=== PATIENT | female | born 1990 | race Caucasian/White ===

== ENCOUNTER 2019-09-25 20:16 | Emergency (ER) | payer BC, SELFPAY ==
[2019-09-25 20:28] VITALS: BP 148/87; PULSE 86; RESP 20; TEMP 37.1; O2SAT 100; BMI 27.7
[2019-09-25 20:42] VITALS: BP 148/87; PULSE 86; RESP 20; TEMP 37.1; O2SAT 100
--- NOTE | 2019-09-25 20:43 | HMH.EDUTC ---
[facility] [place] Disposition Clinical Impression: Wasp sting Qualifiers: Encounter type: initial encounter Injury intent: accidental or unintentional Qualified Code(s): T63.461A - Toxic effect of venom of wasps, accidental (unintentional), initial encounter Disposition: Home, Self-Care Condition on Discharge: Good Instructions: DI for Insect Bites and Stings Additional Instructions: Take the medications as directed. Don't start the oral steroids until tomorrow. Follow up with your primary care provider. GO TO THE ER FOR ANY WORSENING SYMPTOMS OR CONCERNS Prescriptions: cephALEXin [Keflex 500mg Cap] 500 mg PO Q6H 10 Days #40 cap Transmission Status: Received by [facility] # methylPREDNISolone [Medrol] 4 mg PO DIRECTED 6 Days #21 tab.ds.pk Transmission Status: Received by [facility] # Triamcinolone Acetonide 1 applicatio TP TIDP PRN 7 Days #1 tube PRN Reason: Itching Transmission Status: Received by [facility] # Referrals: Penny Martinez APRN [Primary Care Provider] - Forms: Work/School Release Time of Disposition: 20:47 Medical Decision Making - Medical Records Medical records reviewed: No: I reviewed the patient's medical records. - Colt Inquiry Pt receiving controlled substance: No Vital Signs: 09/25/19 20:28 09/25/19 20:42 Temperature 98.8 F 98.8 F Temperature Source Oral Pulse Rate 86 Pulse Rate [Right Brachial] 86 Respiratory Rate 20 20 Blood Pressure 148/87 H Blood Pressure [Right Arm] 148/87 H Blood Pressure Mean [Right Arm] 107 Blood Pressure Source [Right Arm] Automatic Cuff Blood Pressure Position [Right Arm] Sitting 02 Sat by Pulse Oximetry 100 Oxygen Delivery Method Room Air Orders (Tests/Meds): ED MEDICATIONS Discontinued Medications Generic Name Dose Route Start Last Admin Trade Name Freq PRN Reason Stop Dose Admin Methylprednisolone Sodium Succinate 125 mg 09/25/19 20:35 09/25/19 20:41 Solu-Medrol 125mg/2ml Vial IM 09/25/19 20:36 125 mg ONCE ONE Administration [facility] [place] HPI - General Stated complaint: wasp sting 09/24/19 1630 R foot Time Seen by Provider: 09/25/19 20:43 Mode of Arrival: Ambulatory Source of Information: Patient Limitations: No Limitations Description of Symptoms (Recalled from Triage Doc. by RN): PATIENT C/O WASP STING TO RIGHT ANKLE YESTERDAY. REDNESS, WARMTH AND SWELLING NOTED TO AREA HEENT Symptoms (Recalled from RN notes): No Resp Symptoms (Recalled from RN notes): No Skin Symptoms (Recalled from RN notes): Yes MS Symptoms (Recalled from RN notes): No Functional Status (Recalled from RN notes): WNL - History of Present Illness Provider Complaint: She was stung by a wasp yesterday on her right lower leg. Since then she has had worsenign swelling of her right foot and right lower leg. She denies any swelling elsewhere. She denies any shortness of breath or mouth swelling. She denies any history of being allergic to bees. - Related Data Previous Rx's Medication Instructions Recorded Triamcinolone Acetonide 1 applicatio TP TIDP PRN 7 Days #1 09/25/19 tube cephALEXin [Keflex 500mg Cap] 500 mg PO Q6H 10 Days #40 cap 09/25/19 methylPREDNISolone [Medrol] 4 mg PO DIRECTED 6 Days #21 09/25/19 tab.ds.pk Allergies Allergy/AdvReac Type Severity Reaction Status Date / Time No Known Allergies Allergy Verified 09/25/19 20:32 - Worker's Comp Is this a Worker's Comp case?: No [facility] History - Hepatitis A Screen Drug use history?: No High risk sexual behaviors?: No History of sexually transmitted infection?: No Currently employed?: No Childcare worker?: No Do you have indoor plumbing?: Yes Do you have electricity?: Yes Attestation statement:: This patient has been screened for Hepatitis A risk factors. I have reviewed the patient's past medical history: Yes - Social History Alcohol Intake: never Occupational Status: other ROS Obtained: Yes All
== END 2019-09-25 20:45 | disposition home or self-care (01) ==
PROVIDERS: Emergency Provider Nurse Practitioner Family; PCP Nurse Practitioner
DX: T63.461A Toxic effect of venom of wasps, accidental (unintentional), initial encounter (principal)
CPT/HCPCS: 96372; 99201

== ENCOUNTER → 2020-01-24 08:10 | Outpatient (CLI) | payer BC, SELFPAY ==
[2020-01-24 09:45] LABS: Coronavirus 19 IgG Antibody Negative (Negative); Coronavirus 19 IgM Antibody Negative (Negative)
== END ==
PROVIDERS: Visit Provider Surgery
DX: Z01.818 Encounter for other preprocedural examination (principal); Z03.818 Encounter for observation for suspected exposure to other biological agents ruled out; L72.3 Sebaceous cyst
CPT/HCPCS: 36415; 86328

== ENCOUNTER 2020-01-26 07:50 | Day surgery (SDC) | payer BC, SELFPAY ==
[2020-01-24 13:19] VITALS: BMI 27.4
[2020-01-26 08:12] VITALS: BP 149/93; PULSE 76; RESP 18; TEMP 36.5; O2SAT 98
[2020-01-26 09:58] VITALS: BP 127/84; PULSE 76; RESP 18; TEMP 36.4; O2SAT 98
--- NOTE | 2020-01-26 09:59 | P.OP_ITS ---
Date of procedure: 01/26/20 Pre-op Diagnosis:: Sebaceous cyst left upper back (1.5 cm) Post-op Diagnosis:: Same Procedure performed:: Excision of 1.5 cm left upper back sebaceous cyst Surgeon:: Ortiz Gasca MD Em Physician(s):: Oscar Anesthesia: local Estimated blood loss (mL): 5 Operative findings:: Sebaceous cyst with changes consistent with recent abscess Operative note:: After informed consent was obtained the patient was taken to the procedure room and maintained in a seated position. Her left upper back was prepped and draped in a sterile fashion. After infiltration of local anesthetic an elliptical incision was made around the lesion. The deep subcutaneous tissue was sharply dissected with scalpel. The cyst was entered along the inferior/right lateral margin and thin cloudy fluid was evacuated. Thickening of this tissue also was consistent with likely recent abscess. The lesion was then sharply excised in toto and passed off for pathologic evaluation. Electrocautery was utilized to achieve hemostasis. Skin was reapproximated with 3-0 nylon in an interrupted fashion. Dressings were applied and the patient was discharged in stable condition. Condition: stable Disposition: no change Specimens:: Left upper back sebaceous cyst Complications:: No immediate
[2020-01-26 10:00] VITALS: BP 137/88; PULSE 71; RESP 18
== END 2020-01-26 10:15 | disposition home or self-care (01) ==
LOC: OUTP 07:51
PROVIDERS: PCP Nurse Practitioner; Visit Provider Surgery
PROC: (CPT 11402; principal; 2020-01-26 09:00)
DX: L72.0 Epidermal cyst (principal)
CPT/HCPCS: 11402

== ENCOUNTER 2021-01-18 17:47 | Emergency (ER) | payer BC, SELFPAY ==
[2021-01-18 18:02] VITALS: BP 138/102; PULSE 87; RESP 19; TEMP 36.9; O2SAT 99; BMI 27.1
--- NOTE | 2021-01-18 18:26 | HMH.EDUTC ---
[facility] [place] Disposition Clinical Impression: Strep throat Disposition: Home, Self-Care Condition on Discharge: Good Instructions: Strep Throat, DI for Strep Throat Additional Instructions: Drink plenty of fluids. Take tylenol or ibuprofen for pain or fever. Take the medications as directed. Follow up with your regular doctor. GO TO THE ER FOR ANY WORSENING SYMPTOMS Throw your tooth brush away and get a new one. Prescriptions: Ondansetron [Zofran 4mg ODT] 4 mg PO Q8HP PRN #20 tab PRN Reason: Nausea Transmission Status: Pending to [facility] # methylPREDNISolone [Medrol] 4 mg PO DIRECTED 6 Days #21 packet Transmission Status: Pending to [facility] # Cefdinir [Omnicef 300mg Capsule] 300 mg PO BID #20 cap Transmission Status: Pending to [facility] # Referrals: Mich Denton MD [Primary Care Provider] - Time of Disposition: 19:23 Medical Decision Making - Medical Records Medical records reviewed: No: I reviewed the patient's medical records. - Colt Inquiry Pt receiving controlled substance: No Vital Signs: 01/18/21 18:02 Temperature 98.4 F Temperature Source Oral Pulse Rate [Left] 87 Respiratory Rate 19 Blood Pressure [Right Arm] 138/102 H Blood Pressure Mean [Right Arm] 114 02 Sat by Pulse Oximetry 99 - Lab Data Lab results reviewed: Yes: I reviewed the patient's lab results. Orders (Tests/Meds): ED MEDICATIONS Discontinued Medications Generic Name Dose Route Start Last Admin Trade Name Freq PRN Reason Stop Dose Admin Ketorolac Tromethamine 60 mg 01/18/21 18:44 01/18/21 18:53 Ketorolac 60mg/2ml Vial IM 01/18/21 18:45 60 mg ONCE ONE Administration Methylprednisolone Sodium Succinate 125 mg 01/18/21 18:44 01/18/21 18:53 Methylprednisolone Sod Succ 125mg Vial IM 01/18/21 18:45 125 mg ONCE ONE Administration Ondansetron HCl 4 mg 01/18/21 18:44 01/18/21 18:53 Ondansetron 4mg Odt SL 01/18/21 18:45 4 mg ONCE ONE Administration [facility] [place] HPI - General Stated complaint: sinus problems Time Seen by Provider: 01/18/21 18:38 Mode of Arrival: Ambulatory Source of Information: Patient Limitations: No Limitations Description of Symptoms (Recalled from Triage Doc. by RN): pt c/o sinus pressure/congestion and pt is hoarse. pt was seen by her pcp 01/15 and was covid negative at this time. HEENT Symptoms (Recalled from RN notes): Yes (sinus congestion and drainage) Resp Symptoms (Recalled from RN notes): No Skin Symptoms (Recalled from RN notes): No MS Symptoms (Recalled from RN notes): No Functional Status (Recalled from RN notes): wnl - History of Present Illness Provider Complaint: She states that she has been feeling bad for the past 5 days. She saw her pcp on (3 days ago) and tested negative for covid. She was started on amoxicillin then. She states that she is not feeling better. She usually gets sinus infections this time of year and has to get a steroid shot. - Related Data Home Medications Medication Instructions Recorded Confirmed Cetirizine HCl [Zyrtec] 10 mg PO DAILY 01/24/20 02/06/20 Previous Rx's Medication Instructions Recorded Cefdinir [Omnicef 300mg Capsule] 300 mg PO BID #20 cap 01/18/21 Ondansetron [Zofran 4mg ODT] 4 mg PO Q8HP PRN #20 tab 01/18/21 methylPREDNISolone [Medrol] 4 mg PO DIRECTED 6 Days #21 01/18/21 packet Allergies Allergy/AdvReac Type Severity Reaction Status Date / Time No Known Allergies Allergy Verified 02/06/20 15:04 - Worker's Comp Is this a Worker's Comp case?: No [facility] History - Hepatitis A Screen Drug use history?: No High risk sexual behaviors?: No History of sexually transmitted infection?: No Currently employed?: No Childcare worker?: No Do you have indoor plumbing?: Yes Do you have electricity?: Yes Attestation statement:: This patient has been screened for Hepatitis A risk factors. Rebeca john
[2021-01-18 19:43] VITALS: BP 138/102; PULSE 87; RESP 19; TEMP 36.9
[2021-01-19 19:33] LABS: UTC Strep Screen (Rapid) Positive (Negative)
== END 2021-01-18 19:44 | disposition home or self-care (01) ==
PROVIDERS: Emergency Provider Nurse Practitioner Family; PCP Family Medicine
DX: J02.0 Streptococcal pharyngitis (principal)
CPT/HCPCS: 87880; 96372; 99202; G0463

== ENCOUNTER 2021-02-17 08:18 | Emergency (ER) | payer BC, SELFPAY ==
--- NOTE | 2021-02-17 08:22 | HMH.EDGENADL ---
ED Disposition Clinical Impression: Injury of right thumb Qualifiers: Encounter type: initial encounter Qualified Code(s): S69.91XA - Unspecified injury of right wrist, hand and finger(s), initial encounter Injury of right thumbnail Qualifiers: Encounter type: initial encounter Qualified Code(s): S69.91XA - Unspecified injury of right wrist, hand and finger(s), initial encounter Disposition: Home, Self-Care Condition on Discharge: Good Referrals: Cassi Torrez MD [Primary Care Provider] - - Critical Care Critical Care Time: No Attestation: On , the high probability of a clinically significant, sudden or life threatening deterioration of the following system(s) required my full and direct attention, intervention and personal management. The time I documented below is in addition to time spent performing reported procedures but includes the following listed in this critical care notation. Medical Decision Making - Medical Records Medical records reviewed: Yes: I reviewed the patient's medical records. - Colt Inquiry Pt receiving controlled substance: No Vital Signs: 02/17/21 09:04 02/17/21 10:29 Temperature 98.3 F Temperature Source Oral Pulse Rate 85 Respiratory Rate 18 18 Blood Pressure 128/85 Blood Pressure Source Automatic Cuff Blood Pressure Position Supine 02 Sat by Pulse Oximetry 98 Oxygen Delivery Method Room Air Room Air Medical Decision Narrative: Patient is a 30yo F presenting w/cc of right thumb pain s/p injury. Differential diagnosis includes, but is not limited to, fracture, injury to nailbed, bleeding, other. On initial exam, patient is hemodynamically stable nontoxic-appearing. Physical exam shows a fractured nail bed with an intact nail bed. Nail was trimmed, wound was washed out and dressed. She was evaluated with x-ray which was negative for acute fracture. Patient was counseled on supportive care, given return precautions. She was discharged in a stable condition. General Adult HPI - General Stated complaint: a/o 02/17 shut right thumb in car door Time Seen by Provider: 02/17/21 08:20 - History of Present Illness HPI narrative: Patient is a healthy 30-year-old female presenting with chief complaint of right thumb pain after slamming her finger in a car door. Patient has a fractured nail but intact nailbed and she denies any motor limitations. She denies any numbness. Pain is mild. No other injuries. - Related Data Home Medications Medication Instructions Recorded Confirmed Cetirizine HCl [Zyrtec] 10 mg PO DAILY 01/24/20 02/06/20 Previous Rx's Medication Instructions Recorded Cefdinir [Omnicef 300mg Capsule] 300 mg PO BID #20 cap 01/18/21 Ondansetron [Zofran 4mg ODT] 4 mg PO Q8HP PRN #20 tab 01/18/21 methylPREDNISolone [Medrol] 4 mg PO DIRECTED 6 Days #21 01/18/21 packet Allergies Allergy/AdvReac Type Severity Reaction Status Date / Time No Known Allergies Allergy Verified 02/06/20 15:04 [facility] History - Hepatitis A Screen Attestation statement:: This patient has been screened for Hepatitis A risk factors. Medical History: Denies:: Cancer, Diabetes Mellitus Type 1, Diabetes Mellitus Type 2, Internal Pacemaker, MRSA, Seizures Other Surgeries: Yes: Other. No: Pacemaker Amputation: No Comment: I & D - Social History Smoking Status: Never smoker Alcohol Intake: never Alcohol Intake Frequency:: holidays/special occasions only Occupational Status: employed Housing: house Household Members: spouse Family Hx:: No significant family history ROS Obtained: Yes Systems reviewed as appropriate & no additional complaints - Constitutional Constitutional: Reports other (Denies LOC, fall) - Cardiovascular Cardiovascular: Denies chest pain - Respiratory Respiratory: Reports system reviewed and no additional complaints, except as docu, Denies shortness of breath - Musculoskeletal Musculoskeletal: Reports other (Righ
[2021-02-17 09:04] VITALS: RESP 18; O2SAT 98; BMI 27.8
--- NOTE | 2021-02-17 09:08 | XR_ITS ---
FINAL REPORT CLINICAL HISTORY: PT SLAMMED RT THUMB IN CAR DOOR R/O FX FINDINGS: RIGHT HAND FINDINGS: Three views show no evidence of an acute, displaced fracture or dislocation. The joint spaces appear normal. The soft tissues are unremarkable. IMPRESSION: No acute bony abnormality. Reviewed, Interpreted and Dictated by Michel Shelley MD Transcribed by Rafaela Smith Authenticated by Michel Shelley MD on 02/17/2021 10:20:08 AM [facility]
[2021-02-17 10:29] VITALS: BP 128/85; PULSE 85; RESP 18; TEMP 36.8; O2SAT 98
== END 2021-02-17 10:29 | disposition home or self-care (01) ==
PROVIDERS: Emergency Provider Emergency Medicine; PCP Family Medicine
DX: S67.01XA Crushing injury of right thumb, initial encounter (principal); W23.0XXA Caught, crushed, jammed, or pinched between moving objects, initial encounter
CPT/HCPCS: 73130; 99282

== ENCOUNTER → 2021-03-06 19:23 | Outpatient (CLI) | payer BC, SELFPAY | PROVIDERS: Visit Provider Nurse Practitioner Family | DX: U07.1 COVID-19 (principal) | CPT/HCPCS: C9803; U0003; U0005 ==

== ENCOUNTER 2021-06-24 16:57 | Emergency (ER) | payer BC, SELFPAY ==
[2021-06-24 17:15] VITALS: BP 152/97; PULSE 97; RESP 20; TEMP 37.3; O2SAT 100; BMI 26.4
--- NOTE | 2021-06-24 17:22 | HMH.EDUTC ---
[facility] [place] Disposition Clinical Impression: Cellulitis Qualifiers: Site of cellulitis: extremity Site of cellulitis of extremity: lower extremity Laterality: left Qualified Code(s): L03.116 - Cellulitis of left lower limb Disposition: Home, Self-Care Condition on Discharge: Good Instructions: Cellulitis Additional Instructions: Keep the affected area clean and dry. Follow up with your regular doctor. Take the antibiotics as directed and apply the topical antibiotics as directed. Apply warm wet compresses to the affected area three or four times per day. GO TO THE ER FOR ANY WORSENING SYMPTOMS Prescriptions: Sulfamethoxazole/Trimethoprim [Bactrim DS tablet] 1 each PO BID 10 Days #20 tab Transmission Status: Received by [facility] Mupirocin [Bactroban 2% Ointment 22gm tube] 1 applicatio TP TID 7 Days #1 gm Transmission Status: Received by [facility] cephALEXin [cephALEXin 500mg capsule] 500 mg PO Q6H 10 Days #40 cap Transmission Status: Received by [facility] Referrals: Cassi Torrez MD [Primary Care Provider] - Time of Disposition: 18:11 Medical Decision Making - Medical Records Medical records reviewed: No: I reviewed the patient's medical records. - Colt Inquiry Pt receiving controlled substance: No Vital Signs: 06/24/21 17:15 06/24/21 18:15 Temperature 99.1 F 99.1 F Temperature Source Oral Pulse Rate 85 Pulse Rate [Radial] 97 H Respiratory Rate 20 20 Blood Pressure 145/80 H Blood Pressure [Right Arm] 152/97 H Blood Pressure Mean [Right Arm] 115 02 Sat by Pulse Oximetry 100 Orders (Tests/Meds): ED MEDICATIONS Discontinued Medications Generic Name Dose Route Start Last Admin Trade Name Freq PRN Reason Stop Dose Admin Ceftriaxone Sodium 1 gm 06/24/21 17:48 06/24/21 17:58 Ceftriaxone 1gm Vial IM 06/24/21 17:49 1 gm ONCE ONE Administration Lidocaine HCl 0 ml 06/24/21 17:48 06/24/21 17:58 Lidocaine 1% 5ml Pf Vial IM 06/24/21 17:49 2 ml ONCE ONE Administration [facility] [place] HPI - General Stated complaint: spot on Left Leg Time Seen by Provider: 05/10/22 17:22 Mode of Arrival: Ambulatory Source of Information: Patient Limitations: No Limitations Description of Symptoms (Recalled from Triage Doc. by RN): pt c/o red bump on top of inner left thigh. it started out just red, now it has gotten hard and swollen. the redness has now spread down into her lower thigh area. pt states she did use electric razor on wednesday night HEENT Symptoms (Recalled from RN notes): No Resp Symptoms (Recalled from RN notes): No Skin Symptoms (Recalled from RN notes): Yes MS Symptoms (Recalled from RN notes): No Functional Status (Recalled from RN notes): wnl - History of Present Illness Provider Complaint: She states that for the past 3 days she has had a red area on the inside of her left thigh. The red area is getting larger. She denies fever at home, but she has been having some chilling. - Related Data Home Medications Medication Instructions Recorded Confirmed Cetirizine HCl [Zyrtec] 10 mg PO DAILY 01/24/20 03/06/21 Previous Rx's Medication Instructions Recorded azithromycin 250 mg tablet 250 mg PO QDAY 5 Days #6 tab 03/06/21 Mupirocin [Bactroban 2% Ointment 1 applicatio TP TID 7 Days #1 gm 06/24/21 22gm tube] Sulfamethoxazole/Trimethoprim 1 each PO BID 10 Days #20 tab 06/24/21 [Bactrim DS tablet] cephALEXin [cephALEXin 500mg 500 mg PO Q6H 10 Days #40 cap 06/24/21 capsule] Allergies Allergy/AdvReac Type Severity Reaction Status Date / Time No Known Allergies Allergy Verified 06/24/21 17:19 - Worker's Comp Is this a Worker's Comp case?: No [facility] History - Hepatitis A Screen Attestation statement:: This patient has been screened for Hepatitis A risk factors. I have reviewed the patient's past medical history: Yes Medical History: Denies:: Cancer, Diabetes Mellitus Type
[2021-06-24 18:15] VITALS: BP 145/80; PULSE 85; RESP 20; TEMP 37.3
== END 2021-06-24 18:47 | disposition home or self-care (01) ==
PROVIDERS: Emergency Provider Nurse Practitioner Family; PCP Family Medicine
DX: L03.116 Cellulitis of left lower limb (principal)
CPT/HCPCS: 96372; 99213; G0463; J0696

== ENCOUNTER 2021-10-07 09:16 | Emergency (ER) | payer BC, SELFPAY ==
--- NOTE | 2021-10-07 09:35 | HMH.EDUTC ---
[facility] [place] Disposition Clinical Impression: Sinusitis Qualifiers: Sinusitis location: unspecified location Chronicity: acute Recurrence: non-recurrent Qualified Code(s): J01.90 - Acute sinusitis, unspecified Disposition: Home, Self-Care Condition on Discharge: Good Instructions: DI for Sinusitis Additional Instructions: Drink plenty of fluids. Take tylenol or ibuprofen for pain or fever. Take the medications as directed. Follow up with your regular doctor. GO TO THE ER FOR ANY WORSENING SYMPTOMS Don't start the oral steroids until tomorrow, since you had the shot here today. stop the amoxicillin and start the azithromycin Prescriptions: Brompheniramine/Pseudoephed/Dm [Bromfed Dm Cough Syrup] 5 ml PO Q6HP PRN #240 ml PRN Reason: Cough Transmission Status: Pending to [facility] methylPREDNISolone [Medrol] 4 mg PO DIRECTED 6 Days #21 packet Transmission Status: Pending to [facility] Azithromycin [Z-Ananda 250mg Tab*] 250 mg PO UD DOSE PK #6 tab Transmission Status: Pending to [facility] Referrals: Cassi Torrez MD [Primary Care Provider] - Time of Disposition: 09:46 Medical Decision Making - Medical Records Medical records reviewed: No: I reviewed the patient's medical records. - Colt Inquiry Pt receiving controlled substance: No [facility] [place] HPI - General Stated complaint: Congestion Time Seen by Provider: 10/07/21 09:35 - History of Present Illness Provider Complaint: She states that for the past 2 weeks she has had sinus congestion, sinus pressure, and she has felt bad. She saw her pcp 4 days ago and was started on amoxicillin. She states she is taking this as prescribed but she is not getting better. - Related Data Home Medications Medication Instructions Recorded Confirmed Cetirizine HCl [Zyrtec] 10 mg PO DAILY 01/24/20 03/06/21 Previous Rx's Medication Instructions Recorded azithromycin 250 mg tablet 250 mg PO QDAY 5 Days #6 tab 03/06/21 Mupirocin [Bactroban 2% Ointment 1 applicatio TP TID 7 Days #1 gm 06/24/21 22gm tube] Sulfamethoxazole/Trimethoprim 1 each PO BID 10 Days #20 tab 06/24/21 [Bactrim DS tablet] cephALEXin [cephALEXin 500mg 500 mg PO Q6H 10 Days #40 cap 06/24/21 capsule] Azithromycin [Z-Ananda 250mg Tab*] 250 mg PO UD DOSE PK #6 tab 10/07/21 Brompheniramine/Pseudoephed/Dm 5 ml PO Q6HP PRN #240 ml 10/07/21 [Bromfed Dm Cough Syrup] methylPREDNISolone [Medrol] 4 mg PO DIRECTED 6 Days #21 10/07/21 packet Allergies Allergy/AdvReac Type Severity Reaction Status Date / Time No Known Allergies Allergy Verified 10/07/21 09:41 [facility] History - Hepatitis A Screen Attestation statement:: This patient has been screened for Hepatitis A risk factors. I have reviewed the patient's past medical history: Yes Medical History: Denies:: Cancer, Diabetes Mellitus Type 1, Diabetes Mellitus Type 2, Internal Pacemaker, MRSA, Seizures Other Surgeries: Yes: Other. No: Pacemaker Amputation: No Comment: I & D - Social History Smoking Status: Never smoker Alcohol Intake: never Alcohol Intake Frequency:: holidays/special occasions only Occupational Status: employed Housing: house Household Members: spouse Family Hx:: No significant family history ROS Obtained: Yes All systems reviewed & no additional complaints - Constitutional Constitutional: Reports as per HPI - Eyes Eyes: Denies eye discharge - ENT Ears, Nose, Mouth, and Throat: Reports as per HPI - Cardiovascular Cardiovascular: Denies chest pain - Respiratory Respiratory: Denies chest congestion, Reports cough Physical Exam - General General appearance: alert, in no apparent distress - Head Head exam: atraumatic, normocephalic, normal inspection - Eye Eye exam: Present: normal appearance, PERRL, EOMI - ENT ENT exam: Present: normal exam, normal oropharynx, mucous membranes moist, TM's normal bilaterally, normal exter
[2021-10-07 09:39] VITALS: BP 153/82; PULSE 88; RESP 17; TEMP 37.1; O2SAT 98; BMI 28.3
[2021-10-07 09:56] VITALS: BP 153/82; PULSE 88; RESP 17; TEMP 37.1
== END 2021-10-07 09:56 | disposition home or self-care (01) ==
PROVIDERS: Emergency Provider Nurse Practitioner Family; PCP Family Medicine
DX: J01.90 Acute sinusitis, unspecified (principal)
CPT/HCPCS: 96372; 99212; G0463

== ENCOUNTER 2022-03-10 09:26 | Emergency (ER) | payer BC, SELFPAY ==
--- NOTE | 2022-03-10 09:49 | EXP.UTC ---
Discharge Plan Disposition Patient Disposition: Home, Self-Care Condition: Good Prescriptions Prescriptions: New azithromycin [Zithromax] 250 mg tablet 250 mg PO UD DOSE PK Qty: 6 0RF Rx Instructions: Take two (2) tablets today, then one (1) tablet days #2 thru #5 methylprednisolone 4 mg Tablets,Dose Pack 4 mg PO DIRECTED Qty: 21 0RF [id number] [Bromfed DM] 2-30-10 mg/5 mL Syrup 5 ml PO Q6H PRN (Reason: Cough) Qty: 240 0RF No Action cetirizine 10 MG capsule 10 mg PO DAILY mupirocin 22 GM ointment 1 applicatio TP TID 7 Days Qty: 1 0RF Referrals Follow up/Referrals: Cassi Torrez MD [Primary Care Provider] - See instructions Activity Restrictions/Add. Instructions Additional Instructions/Restrictions: Drink plenty of fluids. Take tylenol or ibuprofen for pain or fever. Take the medications as directed. Follow up with your regular doctor. GO TO THE ER FOR ANY WORSENING SYMPTOMS Clinical Impressions Clinical Impression: Sinusitis Stand Alone Forms Stand Alone Forms: Work/School Release Instructions Patient Instructions: Sinusitis, DI for Sinusitis Discharge ED Provider: Reji Andino [facility] General Stated complaint: Congestion drainage sore throat Time Seen by Provider: 03/10/22 09:49 History of Present Illness Provider Complaint: She states that for the past 1 day she has had sinus congestion, left ear pain, scratchy sore throat. She denies fever/chills/body aches. She took a covid-19 test at her work that was negative. Related Data Home Medications Medication Instructions Recorded Confirmed cetirizine 10 mg capsule 10 mg PO DAILY allergies 01/24/20 03/06/21 Previous Rx's Medication Instructions Recorded mupirocin 2 % topical ointment 1 applicatio topical TID 7 days ##1 06/24/21 azithromycin 250 mg tablet 250 mg PO UD DOSE PK #6 tabs 03/10/22 (Zithromax) ytjysfuskasnbbv-rennrguvzqcemkf-XT 5 ml PO Q6H PRN Cough #240 mL 03/10/22 2 mg-30 mg-10 mg/5 mL oral syrup (Bromfed DM) methylprednisolone 4 mg tablets in 4 mg PO DIRECTED #21 tabs 03/10/22 a dose pack Allergies Allergy/AdvReac Type Severity Reaction Status Date / Time No Known Allergies Allergy Verified 03/10/22 10:24 [facility] Disclaimer: The information contained in this section may have been updated after the patient was seen, as this information can be updated by other users. Social History Smoking Status: Never smoker alcohol intake: never current occupational status: employed Travel in the last 8 weeks: None household members: spouse housing: house current occupation: [employer] current occupational exposures/hazards: Yes caffeine: Yes ROS Obtained: Yes All systems reviewed & no additional complaints except as documented Constitutional Constitutional: Reports poor appetite Eyes Eyes: Reports system reviewed and no additional complaints, except as documented ENT Ears, Nose, Mouth, and Throat: Reports as per HPI Cardiovascular Cardiovascular: Reports system reviewed and no additional complaints, except as documented and Denies chest pain Respiratory Respiratory: Denies shortness of breath, Denies chest congestion, Reports cough, Denies stridor and Denies wheezing Gastrointestinal Gastrointestingal: Reports system reviewed and no additional complaints, except as documented; Denies abdominal pain, diarrhea or vomiting Musculoskeletal Musculoskeletal: Reports system reviewed and no additional complaints, except as documented and Denies arthralgias Integumentary/Breasts Skin/Breast: Reports system reviewed and no additional complaints, except as documented and Denies rash Neurologic Neurologic: Denies paresthesias Allergic/Immunologic Allergic/Immunologic: Denies wheezing Physical Exam General General appearance: alert and in no apparent distress Eye Eye exam: Present normal
[2022-03-10 09:50] VITALS: BP 149/98; PULSE 102; RESP 20; TEMP 37.1; O2SAT 99; BMI 28.1
[2022-03-10 10:40] VITALS: BP 149/98; PULSE 102; RESP 20; TEMP 37.1; O2SAT 99
== END 2022-03-10 10:40 | disposition home or self-care (01) ==
PROVIDERS: Emergency Provider Nurse Practitioner Family; PCP Family Medicine
DX: J32.9 Chronic sinusitis, unspecified (principal)
CPT/HCPCS: 99212; 99213; G0463

== ENCOUNTER 2022-05-26 08:38 | Emergency (ER) | payer BC, SELFPAY ==
[2022-05-26 08:39] VITALS: BP 181/98; PULSE 79; RESP 20; TEMP 36.7; O2SAT 100; BMI 27.6
--- NOTE | 2022-05-26 09:01 | EXP.UTC ---
Discharge Plan Disposition Patient Disposition: Home, Self-Care Condition: Good Prescriptions Prescriptions: No Action cetirizine 10 MG capsule 10 mg PO DAILY citalopram 10 mg tablet 10 mg PO DAILY cefdinir 300 mg capsule 300 mg PO DAILY Referrals Follow up/Referrals: Cassi Torrez MD [Primary Care Provider] - See instructions Activity Restrictions/Add. Instructions Additional Instructions/Restrictions: *Monitor Temp, Over the counter Motrin or Tylenol as directed/as needed Tylenol every 4 hours and Motrin every 6 hours (as long as your family doctor has told you that you can take it) for fever or pain. and straight to ER if unable to lower temp less than 101.0 after medication given *Warm salt water gargles may help to soothe the throat *Throat Lozenges? *Warm fluids like tea with honey may help to soothe the throat? *Sleep elevated *Humidifier/Vaporizer Your throat swab was sent for culture. Those results are typically sent to your primary care. Be sure to follow up in 2-3 days with your family doctor/primary care physician if no improvement so they can review those result and treat if necessary. If you don?t have a primary care doctor, I recommend you get one but in the mean time, you will have to return to a walk in clinic Follow up IMMEDIATELY for new or worsening symptoms or no Noticeable improvement over the next 48-72 hours. 911 for difficulty breathing or swallowing Clinical Impressions Clinical Impression: URI (upper respiratory infection) Instructions Patient Instructions: Sore Throat Discharge ED Provider: Meche Sands [facility] General Stated complaint: sore throat, eyes irritated, congestion Mode of Arrival: Ambulatory Source of Information: Patient Limitations: No Limitations Time Seen by Provider: 05/26/22 09:02 Description of Symptoms (Recalled from Triage Doc. by RN): sinus, sore throat HEENT Symptoms (Recalled from RN notes): Yes Resp Symptoms (Recalled from RN notes): No Skin Symptoms (Recalled from RN notes): No MS Symptoms (Recalled from RN notes): No Functional Status (Recalled from RN notes): n/a History of Present Illness Provider Complaint: Patient states that she hasnt felt well in several days States that she has been having sore throat, sinus congestion and drainage, and her eyes are irritated States that she seen her PCP yesterday and they thought she had pink eye and they started her on some drops but her eyes have got worse since starting them and her throat is hurting worse States that she did start her on some antibiotics but they havent helped much Related Data Home Medications Medication Instructions Recorded Confirmed cetirizine 10 mg capsule 10 mg PO DAILY allergies 01/24/20 03/06/21 cefdinir 300 mg capsule 300 mg PO DAILY . 05/26/22 05/26/22 citalopram 10 mg tablet 10 mg PO DAILY Anxiety 05/26/22 05/26/22 Allergies Allergy/AdvReac Type Severity Reaction Status Date / Time No Known Allergies Allergy Verified 05/26/22 09:00 Worker's Comp Is this a Worker's Comp case?: No [id number] Disclaimer: The information contained in this section may have been updated after the patient was seen, as this information can be updated by other users. Social History Smoking Status: Never smoker alcohol intake: never current occupational status: employed Travel in the last 8 weeks: None household members: spouse housing: house current occupation: [employer] current occupational exposures/hazards: Yes caffeine: Yes ROS Obtained: Yes All systems reviewed & no additional complaints except as documented and Yes Systems reviewed as appropriate & no additional complaints except as documented Eyes Eyes: Reports system reviewed and no additional complaints, except as documented, Reports as per HPI, Reports eye discharge and Reports irritation ENT Ears, Nose, Mouth, and Throa
[2022-05-26 09:10] LABS: UTC Strep Screen (Rapid) Negative (Negative)
[2022-05-26 09:22] VITALS: BP 181/98; PULSE 79; RESP 20; TEMP 36.7; O2SAT 100
== END 2022-05-26 09:22 | disposition home or self-care (01) ==
PROVIDERS: Emergency Provider Nurse Practitioner; PCP Family Medicine
DX: J06.9 Acute upper respiratory infection, unspecified (principal); H53.143 Visual discomfort, bilateral
CPT/HCPCS: 87880; 99212; 99214; G0463

== ENCOUNTER 2023-01-05 18:35 | Emergency (ER) | payer BC, SELFPAY ==
[2023-01-05 19:10] VITALS: BP 143/82; PULSE 76; RESP 20; TEMP 36.7; O2SAT 98; BMI 25.4
[2023-01-05 19:22] LABS: Apearance,Urine Clear (Clear); Bilirubin,Urine Negative (Negative); Blood, Urine 3+ (Negative); Color,Urine Yellow (Yellow); Glucose,Urine (UA) Negative (Negative); Ketones,Urine Negative (Negative); PH,Urine 6.5 (5.0-8.5); Protein,Urine Negative (Negative); UTC Leukocyte Esterase,Urine Trace (Negative); UTC Nitrate,Urine Negative (Negative); Urobilinogen,Urine 0.2 EU/dl (0.2)
--- NOTE | 2023-01-05 19:32 | EXP.UTC ---
Discharge Plan Disposition Patient Disposition: Home, Self-Care Condition: Good Prescriptions Prescriptions: New fluconazole 150 mg tablet 150 mg PO ONCE 1 Days Qty: 1 0RF nitrofurantoin monohyd/m-cryst [Macrobid] 100 mg capsule 100 mg PO Q12H 7 Days Qty: 14 0RF Rx Instructions: must administer with a meal/food No Action cetirizine 10 MG capsule 10 mg PO DAILY hydroxyzine HCl 10 mg tablet 10 mg PO DAILY Patient Comments: TAKE 1 TABLET BY MOUTH EVERY DAY NEEDED citalopram 10 mg tablet 10 mg PO DAILY Referrals Follow up/Referrals: Cassi Torrez MD [Primary Care Provider] - See instructions Activity Restrictions/Add. Instructions Additional Instructions/Restrictions: *Increase fluids. Water not Soda or Tea *Start antibiotic immediately and be sure to take as ordered for the FULL length of time although you should start to see improvement over the next 48 hours *Pyridium as needed Remember this medication will turn your urine . This is normal but it will stain what ever it gets on *You should not use Pyridium for more than 48 hours. If so , follow up with your primary physician to review urine culture and ensure that antibiotic is adequate for infection *Be SURE to follow up anytime for new or worsening symptoms with your family doctor. AND in 48 hours for urine culture results with your family doctor, if you do not have a doctor then you may call back to the [facility] for urine culture results and further treatment. We do recommend that you choose and establish care with a Primary Care Physician. ?AND follow up with them ?in 10-14 days to repeat UA to ensure infection is resolved and blood no longer present *Be sure to let your PCP know that we sent urine cultures from the [facility] so they can follow up to ensure that you area the on the correct antibiotic Call your doctor office and make appointment for 48 hours (2 days from today) ?to follow up and get the results of your urine culture and further treatment Instructions Patient Instructions: DI for Urinary Tract Infection (UTI), DI for Vaginal Yeast Infection Discharge ED Provider: Meche Sands [facility] HPI General Stated complaint: suspected UTI, difficulty peeing Mode of Arrival: Ambulatory Source of Information: Patient Limitations: No Limitations Time Seen by Provider: 01/05/23 19:32 Description of Symptoms (Recalled from Triage Doc. by RN): PATIENT C/O URINARY URGENCY AND DISCHARGE THAT STARTED WEDNESDAY HEENT Symptoms (Recalled from RN notes): No Resp Symptoms (Recalled from RN notes): No Skin Symptoms (Recalled from RN notes): No MS Symptoms (Recalled from RN notes): No Functional Status (Recalled from RN notes): WNL History of Present Illness Provider Complaint: Patient states that she has been having burning with urination and feeling of urgency and frequency States that she is on her period right now States that she was having some white thick discharge prior to starting her period thinks she may have yeast infection too Related Data Home Medications Medication Instructions Recorded Confirmed cetirizine 10 mg capsule 10 mg PO DAILY allergies 01/24/20 01/05/23 citalopram 10 mg tablet 10 mg PO DAILY Anxiety 05/26/22 01/05/23 hydroxyzine HCl 10 mg tablet 10 mg PO DAILY 01/05/23 01/05/23 Previous Rx's Medication Instructions Recorded fluconazole 150 mg tablet 150 mg PO ONCE 1 day #1 tab 01/05/23 nitrofurantoin 100 mg PO Q12H 7 days #14 caps 01/05/23 monohydrate/macrocrystals 100 mg capsule (Macrobid) Allergies Allergy/AdvReac Type Severity Reaction Status Date / Time No Known Allergies Allergy Verified 05/26/22 09:00 Worker's Comp Is this a Worker's Comp case?: No [facility] Disclaimer: The information contained in this section may have been updated after the patient was seen, as this information can be updated by other users. Medical History (Updated 01/05/23 @ 19:20 by Mari Turner RN)
[2023-01-05 19:40] VITALS: BP 143/82; PULSE 76; RESP 20; TEMP 36.7; O2SAT 98
== END 2023-01-05 19:42 | disposition home or self-care (01) ==
PROVIDERS: Emergency Provider Nurse Practitioner; PCP Family Medicine
DX: N39.0 Urinary tract infection, site not specified (principal)
CPT/HCPCS: 81003; 99212; 99214; G0463

== ENCOUNTER 2023-10-13 14:14 | Outpatient (CLI) | payer BC, SELFPAY ==
[2023-10-13 14:38] LABS: Blood Urea Nitrogen 10 mg/dl (7-17); Estimated Glomerular Filt Rate 114 ml/min (>60); GFR (African American) 138 ML/MIN (>60)
== END 2023-10-13 23:59 | disposition home or self-care (01) ==
LOC: LAB 14:15
PROVIDERS: PCP Nurse Practitioner; Visit Provider Nurse Practitioner
DX: I10 Essential (primary) hypertension (principal); G43.119 Migraine with aura, intractable, without status migrainosus
CPT/HCPCS: 36415; 82565; 84520

== ENCOUNTER 2023-10-14 12:49 | Outpatient (CLI) | payer BC, SELFPAY ==
--- NOTE | 2023-10-14 12:53 | MR_ITS ---
FINAL REPORT CLINICAL HISTORY: Migraine headaches 20 ML PROHANCE FINDINGS: Multiplanar MR imaging of the brain was performed without and with contrast. There is no evidence of intracranial hemorrhage or mass. No abnormal extra-axial fluid collection is seen. The ventricular size is within normal limits. There is no evidence of shift of the midline structures. The posterior fossa and brainstem have an unremarkable appearance. No area of abnormal restricted diffusion is identified. No abnormal contrast enhancement is seen. Normal major vessel vascular flow voids are noted. There is lobular mucoperiosteal thickening in both maxillary sinuses, left greater than right. IMPRESSION: No acute intracranial abnormality identified. Mucoperiosteal thickening in the maxillary sinuses, left greater than right. Reviewed, Interpreted and Dictated by Michel Shelley MD Transcribed by Rafaela Smith Authenticated and [facility]
[2023-10-14] MEDS: GADOTERIDOL INJ 20ML SYRINGE 20 ML IV (13:43)
[2023-10-14] MEDS: SODIUM CHLORIDE 0.9% 10ML SYR (RAD ONLY) 10 ML IV (13:43)
== END 2023-10-14 23:59 | disposition home or self-care (01) ==
LOC: RAD 12:50
PROVIDERS: PCP Nurse Practitioner; Visit Provider Nurse Practitioner
DX: G43.119 Migraine with aura, intractable, without status migrainosus (principal)
CPT/HCPCS: 70553; A9576